=== PATIENT | male | born 1955 | race Caucasian/White ===

== ENCOUNTER 2018-12-06 17:55 | Emergency (ER) | payer OTHER ==
[~2018-12-06] VITALS: Ht 180.3 cm; Wt 98.0 kg
[~2018-12-06 17:55] MED LIST: ALLEGRA180 MG PO; AMLODIPINE BESYL5 MG PO; ASTELIN NASA137 MCG; DEXILANT60 MG PO; DIOVAN320 MG PO; FLONASE NASAL50 MCG NAB; FORADIL IN; LOFIBRA160 MG PO; NEXIUM40 M1 OR; PROMETHAZINE25 M1 RE; QVAR80 MCG IN
[2018-12-06] MEDS ORDERED: SINGULAIR10 MG PO (18:16)
[2018-12-06] MEDS ORDERED: SYMBICORT1 AE1 IN (18:17)
[2018-12-06] MEDS ORDERED: LOSARTAN POT50 MG PO (18:18)
[2018-12-06 18:57] LABS: HEMOGLOBIN 15.2 g/dl (14.0-18.0); IMMATURE GRANULOCYTES 2.1 % (0.0-5.0); MEAN CELL VOLUME 91.3 fL CALC (80.0-100.0); MEAN CORPUSCULAR HGB 30.8 pG CALC (26.0-32.0); MEAN CORPUSCULAR HGB CONC 33.8 g/L CALC (32.0-36.0); NEUT# 7.46 thou/uL (1.82-7.42); RED BLOOD COUNT 4.93 mill/uL (4.70-6.10); RED CELL DISTRI WIDTH 12.5 % (11.5-15.5)
[2018-12-06 19:21] LABS: ALBUMIN 4.1 g/dL (3.2-5.0); ANION GAP 16 (6-22 (CALC)); BILIRUBIN, TOTAL 0.4 mg/dL (0.0-1.4); BUN 18 mg/dL (8-23); BUN/CREATININE RATIO 19 (12-20 (CALC)); CARBON DIOXIDE 24 mmol/l (22-30); CHLORIDE 102 mmol/l (95-108); GFR > 60 ML/MIN (>=60 (CALC)); GFR FOR AFR.AMER. > 60 ML/MIN (>=60 (CALC)); POTASSIUM 4.1 mmol/l (3.5-5.1); SODIUM 137 mmol/l (137-146); TOTAL PROTEIN 7.4 g/dL (6.3-8.2)
[2018-12-06 19:26] LABS: ALKALINE PHOSPHATASE 66 u/l (38-126); SGOT/AST 27 u/l (19-48)
[2018-12-06 19:59] VITALS: BP 121/77
== END 2018-12-06 20:00 | disposition home or self-care (01) | DRG 203 ==
LOC: ED 17:55
PROVIDERS: Emergency Medicine
DX: J40 Bronchitis, not specified as acute or chronic (principal); Z85.118 Personal history of other malignant neoplasm of bronchus and lung; Z90.2 Acquired absence of lung [part of]

== ENCOUNTER 2020-09-02 11:16 | Observation (INO) | payer OTHER ==
[~2020-09-02] VITALS: Ht 180.3 cm; Wt 104.6 kg
[~2020-09-02 11:16] MED LIST changes: +LOSARTAN POT50 MG PO; +SINGULAIR10 MG PO; +SYMBICORT1 AE1 IN
--- NOTE | 2020-09-02 11:18 | NUR ---
PT AMBULATED TO ROOM WITH STEADY GAIT.
[2020-09-02] MEDS ORDERED: CRESTOR10 MG PO (11:47)
[2020-09-02] MEDS ORDERED: FENOFIBRATE145 MG PO (11:48)
[2020-09-02 12:04] LABS: HEMATOCRIT 45.1 % (39.0-50.0); HEMOGLOBIN 14.9 g/dl (14.0-18.0); IMMATURE GRANULOCYTES 0.8 % (0.0-5.0); MEAN CELL VOLUME 92.4 fL CALC (80.0-100.0); MEAN CORPUSCULAR HGB 30.5 pG CALC (26.0-32.0); NEUT# 10.69 thou/uL (1.82-7.42); RED BLOOD COUNT 4.88 mill/uL (4.70-6.10); RED CELL DISTRI WIDTH 12.7 % (11.5-15.5)
[2020-09-02 12:21] LABS: ANION GAP 13 (6-22 (CALC)); BUN 15 mg/dL (8-23); BUN/CREATININE RATIO 14 (12-20 (CALC)); CARBON DIOXIDE 25 mmol/l (22-30); CHLORIDE 102 mmol/l (95-108); GFR > 60 ML/MIN (>=60 (CALC)); GFR FOR AFR.AMER. > 60 ML/MIN (>=60 (CALC)); POTASSIUM 4.4 mmol/l (3.5-5.1); SODIUM 135 mmol/l (137-146)
--- NOTE | 2020-09-02 12:25 | NUR ---
MEDICATED WITH NITRO 0.4MG SL FOR C/O 7/10 CHEST PAIN.
--- NOTE | 2020-09-02 12:37 | NUR ---
MD AT BEDSIDE TO DISCUSS RESULTS AND POC.
--- NOTE | 2020-09-02 13:47 | NUR ---
REPORT CALLED TO KRISTINE LEHMAN.
--- NOTE | 2020-09-02 14:29 | NUR ---
PT ARRIVED TO THE FLOOR ACCOMPANIED BY ED STAFF. PT IS ALERT AND ORIENTED. RESPIRATIONS ARE EVEN AND UNLABORED ON RA. LUNGS SOUND CLEAR. PEDAL PULSES ARE WEAK. PT REPORTS MILD CHEST PAIN AT THIS TIME STATING "IT'S BETTER THAN IT WAS". PT DENIES NEEDING ANYTHING AT THIS TIME. PT ORIETNED TO ROOM AND CALL POWELL SYSTEM. SAFETY PRECAUTIONS IN PLACE. WILL CONTINUE TO MONITOR.
--- NOTE | 2020-09-02 14:30 | NUR ---
TO ROOM 277 VIA WHEELCHAIR, TELE MONITOR IN PLACE.
[2020-09-02 14:35] VITALS: BP 104/61
[2020-09-02 15:40] VITALS: BP 125/77
--- NOTE | 2020-09-02 16:00 | NUR ---
ANPETER CARTEE AT BEDSIDE
[2020-09-02 19:00] VITALS: BP 110/72
--- NOTE | 2020-09-02 20:13 | NUR ---
PT SITTING ON SIDE OF BED, NO SIGNS OF DISTRESS NOTED, RESP EVEN AND UNLABORED. PT ALERT AND ORIENTED X3, PT STATES CP DULL 3/10, NITRO PASTE APPLIED. DISCUSSED POC, VERBALIZED UNDERSTANDING. ASSESSMENT COMPLETED, CALL LIGHT IN REACH,CONTINUE TO MONITOR.
--- NOTE | 2020-09-02 22:05 | NUR ---
PT RESTING IN BED, NO SIGNS OF DISTRESS NOTED, RESP EVEN AND UNLABORED. PT VOICES NO NEEDS OR COMPLAINTS AT THIS TIME. CALL LIGHT IN REACH,CONTINUE TO MONITOR.
--- NOTE | 2020-09-02 22:44 | NUR ---
RT AT BEDSIDE FOR EKG, PER TELE PT IS NOW SINUS ARRYTHMIA.
--- NOTE | 2020-09-02 22:55 | NUR ---
NOTIFIED MD OF RYTHM TERRELL, PT STATES PAIN 01/06, TROPS TO CONTINUE, NO NEW ORDERS AT THIS TIME. CALL LIGHT IN REACH, PT VOICES NO NEEDS OR COMPLAINTS AT THIS TIME. CONTINUE TO MONITOR.
[2020-09-03] VITALS (7 sets, daily range): BP systolic 92–126; BP diastolic 56–85
--- NOTE | 2020-09-03 00:10 | NUR ---
INFORMED BY [employer] BOOKING OFFICER PT BP 92/62, NITRO PASTE REMOVED AT THIS TIME, CALL LIGHT IN REACH,CONTINUE TO MONITOR.
--- NOTE | 2020-09-03 04:12 | NUR ---
RECEIVED CALL FROM ER PT CONVERTED BACK TO SR WITH PVC AND NO LONGER IN ARRHYTHMIA. CALL LIGHT IN REACH,CONTINUE TO MONITOR.
[2020-09-03 06:48] LABS: HEMOGLOBIN 13.5 g/dl (14.0-18.0); IMMATURE GRANULOCYTES 0.8 % (0.0-5.0); MEAN CELL VOLUME 92.1 fL CALC (80.0-100.0); MEAN CORPUSCULAR HGB 30.3 pG CALC (26.0-32.0); MEAN CORPUSCULAR HGB CONC 32.9 g/dL CAL (32.0-36.0); NEUT# 4.95 thou/uL (1.82-7.42); RED BLOOD COUNT 4.45 mill/uL (4.70-6.10); RED CELL DISTRI WIDTH 12.8 % (11.5-15.5)
--- NOTE | 2020-09-03 06:55 | NUR ---
REPORT RECEIVED FROM XAVIER STEINBERG. PT RESTING IN BED. NO S/S OF DISTRESS AT THIS TIME. SAFETY PRECAUTIONS IN PLACE. WILL CONTINUE TO MONITOR.
[2020-09-03 06:59] LABS: ALBUMIN 3.6 g/dL (3.2-5.0); ALKALINE PHOSPHATASE 51 u/l (38-126); ANION GAP 11 (6-22 (CALC)); BILIRUBIN, TOTAL 0.7 mg/dL (0.0-1.4); BUN 12 mg/dL (8-23); BUN/CREATININE RATIO 13 (12-20 (CALC)); CALCULATED LDLCHOLESTEROL 47 mg/dL (62-129 (CALC)); CARBON DIOXIDE 27 mmol/l (22-30); CHLORIDE 102 mmol/l (95-108); CHOLESTEROL HDL RATIO 2.5 (<4.4 (CALC)); GFR > 60 ML/MIN (>=60 (CALC)); GFR FOR AFR.AMER. > 60 ML/MIN (>=60 (CALC)); HDL CHOLESTEROL 45 mg/dL (>=40); MAGNESIUM 1.9 mg/dL (1.6-2.3); POTASSIUM 4.4 mmol/l (3.5-5.1); SGOT/AST 23 u/l (19-48); SODIUM 135 mmol/l (137-146); TOTAL CHOLESTEROL 114 mg/dl (0-199); TOTAL PROTEIN 6.2 g/dL (6.3-8.2); TOTAL TRIGLYCERIDES 108 mg/dl (30-149); VLDL CHOLESTROL 22 mg/dl (4-45 (CALC))
--- NOTE | 2020-09-03 07:40 | NUR ---
PT RESTING IN BED, ALERT AND ORIENTED. RESPIRATIONS ARE EVEN AND UNLABORED ON RA. LUNGS SOUND CLEAR. PEDAL PULSES ARE WEAK. PT DENIES ANY CHEST PAIN AT THIS TIME STATING "IT'S MORE LIKE DISCOMFORT. I ALMOST CAN FEEL IT." SAFETY PRECAUTIONS IN PLACE. WILL CONTINUE TO MONITOR.
--- NOTE | 2020-09-03 12:50 | NUR ---
PT PUTTING SHIRT ON WHEN HE GOT DIZZY AND STUMBLED BACK INTO THE CHAIR. VS OBTAINED AND ANRP NOTIFIED.
--- NOTE | 2020-09-03 13:10 | NUR ---
OBTAINING ORTHOSTATIC BLOOD PRESSURE. PT DENIES ANY DIZZINESS WHEN REPOSITIONING. ANRP IN THE ROOM DISCUSSING DISCHARGE PLANS AND THE IMPORTANCE OF FOLLOWING UP WITH [facility] AFTER DISCHARGE.
--- NOTE | 2020-09-03 13:28 | NUR ---
Discharge instructions given. Patient verbalizes understanding of same. Discharged in stable condition via Wheelchair to Home with staff. All belongings sent with pt.
== END 2020-09-03 13:28 | disposition home or self-care (01) | DRG 313 ==
LOC: ED 11:16 → ED-I 12:00 → ED 13:40 → MS2 13:41
PROVIDERS: Family Medicine; Nurse Practitioner; ADMIT Internal Medicine; ATTEND Internal Medicine
DX: R07.9 Chest pain, unspecified (principal); I49.3 Ventricular premature depolarization; I49.1 Atrial premature depolarization; R42 Dizziness and giddiness; I10 Essential (primary) hypertension; E78.5 Hyperlipidemia, unspecified; K21.9 Gastro-esophageal reflux disease without esophagitis; Z90.2 Acquired absence of lung [part of]; Z79.899 Other long term (current) drug therapy; Z85.118 Personal history of other malignant neoplasm of bronchus and lung; Z20.828 Contact with and (suspected) exposure to other viral communicable diseases
CPT/HCPCS: G0378; J1650